=== PATIENT | male | born 1980 | race Caucasian/White ===

== ENCOUNTER 2021-01-12 10:21 | Inpatient (IN) | payer MEDICAID ==
[2021-01-12] VITALS (8 sets, daily range): BP systolic 116–132; BP diastolic 57–74
[~2021-01-12] VITALS: Ht 185.4 cm; Wt 88.4 kg
[2021-01-12] MEDS ORDERED: IV RINGERS SOLUTION,LACTATED 1,000 ML IV ONE ×2 (10:30→11:45)
[2021-01-12] MEDS ORDERED: MORPHINE SULFATE 4 MG/ML DISP.SYRIN. IV ONE (10:30)
[2021-01-12 10:54] LABS: BASO # 0.1 x10^3/uL (0.0-0.2); BASO % 0 % (0-3); EOS # 0.1 x10^3/uL (0.0-0.7); EOS % 0 % (0-3); HEMATOCRIT 54.9 % (39.0-53.0); HEMOGLOBIN 17.8 g/dL (13.0-17.5); LYMPH # 1.9 x10^3/uL (1.0-4.8); LYMPH % 7 % (24-48); MEAN CORPUSCULAR HEMOGLOBIN 33 pg (25-35); MEAN CORPUSCULAR HGB CONC 32 g/dL (31-37); MEAN CORPUSCULAR VOLUME 101 fL (79-100); MONO # 1.5 x10^3/uL (0.0-1.1); MONO % 6 % (0-9); NEUT # 23.9 x10^3uL (1.8-7.7); NEUT % 87 % (31-73); PLATELET COUNT 296 x10^3/uL (140-400); RED BLOOD COUNT 5.45 x10^6/uL (4.30-5.70); RED CELL DISTRIBUTION WIDTH 13.3 % (11.5-14.5); WHITE BLOOD COUNT 27.5 x10^3/uL (4.0-11.0)
--- NOTE | 2021-01-12 10:58 | PHYS DOC ---
Past History Past Medical History: Diabetes Past Surgical History: No Surgical History Alcohol Use: None General Adult EDM: Chief Complaint: NAUSEA/VOMITING/DIARRHEA HPI: HPI: Patient is a 40-year-old male male coming in via EMS for epigastric right upper quadrant abdominal pain. Patient states the pain started 4 hours ago. Patient is diaphoretic and breathing heavily. Has a history of type 1 diabetes. States he has not been in the hospital for his diabetes in a long time. Patient states he has been out of his blood glucose testing strips but has been taking his insulin regularly. Has had some nausea without vomiting. No change in bowel movements. Denies any recent illness or infections. Review of Systems: Review of Systems: All other systems within normal limits except for as noted in the HPI Current Medications: Current Meds: Current Medications Medications (Trade) Dose Ordered Sig/Lovely Start Time Stop Time Status Last Admin Dose Admin Lactated Ringer's 1,000 ml @ 2,000 mls/hr 1X ONCE 01/12/21 10:30 01/12/21 10:59 01/12/21 10:35 2,000 MLS/HR Morphine Sulfate (Morphine 4mg Syringe) 4 mg 1X ONCE 01/12/21 10:30 01/12/21 10:31 DC 01/12/21 10:35 4 MG Allergies: Allergies: Allergies Coded Allergies Type Severity Reaction Last Updated Verified No Known Drug Allergies 01/12/21 No Physical Exam: PE: Constitutional: Well developed, well nourished, no acute distress, non-toxic appearance. [] HENT: Normocephalic, atraumatic, bilateral external ears normal, nose normal. [] Eyes: PERRLA, conjunctiva normal, no discharge. [] Neck: No rigidity, supple, no stridor. [] Cardiovascular: Regular rate and rhythm, brisk cap refill [] Lungs & Thorax: Tachypneic, symmetric chest rise. Kussmaul breathing. Abdomen: Soft, nondistended, right upper quadrant tenderness without guarding. Skin: Warm, dry, no erythema, no rash. Diaphoretic [] Back: Unremarkable Extremities: No deformities, range of motion grossly intact, no lower extremity edema [] Neurologic: Alert and oriented X 3, no focal deficits noted. [] Psychologic: Affect normal, judgement normal, mood normal. [] Current Patient Data: Vital Signs: Vital Signs Date Time Temp Pulse Resp B/P (MAP) Pulse Ox O2 Delivery O2 Flow Rate FiO2 01/12/21 10:49 97.7 117 36 145/81 (102) 99 Room Air EKG: EKG: Sinus tachycardia with a heart rate of 112 bpm, normal axis, large T waves. No ectopy. No ST elevation or depression [] Radiology/Procedures: Radiology/Procedures: XR CHEST 1V History: Reason: dka / Spl. Instructions: / History: Comparison: None. Findings: No consolidation or pleural effusion. Normal heart size. No pneumothorax. Impression: 1. No acute cardiopulmonary process. [] Heart Score: C/O Chest Pain: No Risk Factors: Risk Factors: DM, Current or recent (<one month) smoker, HTN, HLP, family history of CAD, obesity. Risk Scores: Score 0 - 3: 2.5% MACE over next 6 weeks - Discharge Home Score 4 - 6: 20.3% MACE over next 6 weeks - Admit for Clinical Observation Score 7 - 10: 72.7% MACE over next 6 weeks - Early Invasive Strategies Course & Med Decision Making: Course & Med Decision Making Pertinent Labs and Imaging studies reviewed. (See chart for details) DKA protocol initiated and admitted to ICU. [] Dragon Disclaimer: Dragon Disclaimer: This electronic medical record was generated, in whole or in part, using a voice recognition dictation system. Departure Departure: Impression: Primary Impression: DKA, type 1 Disposition: ADMITTED INPATIENT Admitting Physician: Kadeem Ayala Condition: CRITICAL Referrals: NON,STAFF (PCP) JOHN BRUNNER MD Jan 12, 2021 10:58
[2021-01-12 11:12] LABS: ALBUMIN 4.5 g/dL (3.4-5.0); ALBUMIN/GLOBULIN RATIO 0.9 (1.0-1.7); CALCIUM 9.5 mg/dL (8.5-10.1); CREATININE 2.2 mg/dL (0.7-1.3); GFR 33.3; MAGNESIUM 2.3 mg/dL (1.8-2.4); PHOSPHORUS 7.5 mg/dL (2.6-4.7); POTASSIUM 4.7 mmol/L (3.5-5.1); TOTAL BILIRUBIN 0.7 mg/dL (0.2-1.0); TOTAL PROTEIN 9.3 g/dL (6.4-8.2)
[2021-01-12] MEDS ORDERED: ONDANSETRON PF 4 MG/2 ML VIAL. ONE (11:27)
--- NOTE | 2021-01-12 11:36 | EKG ---
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
[2021-01-12] MEDS ORDERED: POTASSIUM CHLORIDE 10MEQ 100 ML IV PRN ×4 (11:45)
[2021-01-12] MEDS ORDERED: MAGNESIUM SULFATE 2GM 50 ML IV PRN (11:45)
[2021-01-12] MEDS ORDERED: IV DEXTROSE 5 %-0.45 % NACL 1,000 ML IV SCH (11:45)
--- NOTE | 2021-01-12 11:48 | RAD ---
XR CHEST 1V History: Reason: dka / Spl. Instructions: / History: Comparison: None. Findings: No consolidation or pleural effusion. Normal heart size. No pneumothorax. Impression: 1. No acute cardiopulmonary process. Electronically signed by: Steven Francis DO (01/12/2021 11:45 AM) [id number]
[2021-01-12 12:06] LABS: % BANDS 5 % (0-9); % LYMPHS 3 % (24-48); % MONOS 3 % (0-10); % SEGS 89 % (35-66); PLT ESTIMATE ADEQUATE (ADEQUATE)
[2021-01-12] MEDS: INSULIN REGULAR VIAL 100 UNIT in IV NORMAL SALINE 100ML 100 ML IV PRN (12:17)
[2021-01-12] MEDS: IV NORMAL SALINE 1,000ML 1,000 ML IV SCH ×2 (12:18→16:50)
[2021-01-12 14:15] LABS: BILIRUBIN,URINE SMALL (NEG); CLARITY,URINE CLEAR; COLOR,URINE YELLOW; GLUCOSE,URINE 500 mg/dL (NEG); NITRITE,URINE NEG (NEG); UROBILINOGEN,URINE 0.2 mg/dL (0.2 mg/dL)
[2021-01-12 14:17] LABS: BACTERIA,URINE 0 /HPF (0-FEW); GRANULAR CASTS,URINE OCC /HPF; WBC,URINE 0 /HPF (0-4)
[2021-01-12 14:20] LABS: BARBITURATES NEG (NEG); BENZODIAZEPINES NEG (NEG); CANNABINOIDS NEG (NEG); COCAINE NEG (NEG); METHADONE NEG (NEG); OPIATES POS (NEG); PHENCYCLIDINE NEG (NEG)
[2021-01-12 14:26] LABS: AMPHETAMINE/METHAMPHETAMINE NEG (NEG)
[2021-01-12] MEDS ORDERED: INSU100C4 SQ (18:44)
[2021-01-12] MEDS ORDERED: INSU100V13 SQ (18:44)
[2021-01-12 19:50] LABS: CALCIUM 7.9 mg/dL (8.5-10.1); CREATININE 1.3 mg/dL (0.7-1.3); GFR 61.1; POTASSIUM 4.3 mmol/L (3.5-5.1)
[2021-01-12] MEDS ORDERED: POTASSIUM CL 20MEQ D5-0.45NACL 1,000 ML IV ONE ×2 (20:05→20:15)
[2021-01-13] VITALS (21 sets, daily range): BP systolic 98–121; BP diastolic 45–71
[2021-01-13] MEDS: INSULIN REGULAR VIAL 100 UNIT in IV NORMAL SALINE 100ML 100 ML IV PRN (00:06)
[2021-01-13] MEDS ORDERED: POTASSIUM CL 20MEQ D5-0.45NACL 1,000 ML IV ONE (02:30)
[2021-01-13 05:41] LABS: CALCIUM 8.2 mg/dL (8.5-10.1); CREATININE 1.1 mg/dL (0.7-1.3); GFR 74.1; POTASSIUM 3.5 mmol/L (3.5-5.1)
[2021-01-13] MEDS ORDERED: POTASSIUM CHLORIDE 20 MEQ TABLET.ER. PO ONE ×2 (07:45→18:00)
[2021-01-13] MEDS ORDERED: DEXTROSE 50% 25 GM / 50ML DISP.SYRIN. IV PRN (08:00)
[2021-01-13] MEDS: INSULIN LISPRO 300 UNITS/3 ML VIAL. SQ SCH ×4 (08:00→21:15)
--- NOTE | 2021-01-13 08:52 | HP ---
ADMIT DATE: 01/12/2021 ATTENDING PHYSICIAN: Dr. Jj. CHIEF COMPLAINT: Nausea and weakness. HISTORY OF PRESENT ILLNESS: The patient is a 40-year-old male, type 1 diabetic, who has been noncompliant with his regimen. Supposedly, he ran out of glucose strips, but in reality, he is very depressed. He drinks alcohol and smokes. He has very little insight. He is unemployed. He appears quite despondent when I saw him, perhaps is not due to feeling well. In any event, he has no insight regarding the importance of taking the insulin. His sugars were over 600. His anion gap was 31. Clearly, he was in diabetic ketoacidosis. He was very weak and pale. He was admitted for further treatment and evaluation. He has no recent COVID exposure. No pulmonary symptoms. He has not been taking insulin regularly. He is kind of hit and miss. He has had some nausea without vomiting. No hematemesis. PAST MEDICAL HISTORY: Significant for the type 1 diabetes. He supposedly sees Dr. Mark, how compliant is questionable. ALLERGIES: HE HAS ALLERGIES TO SULFA DRUGS, EXACT REACTIONS UNCLEAR. CURRENT MEDICATIONS: He was supposed to take scheduled regular and Lantus insulin in the form of Levemir and NovoLog. He has not been compliant. SOCIAL HISTORY: He is a smoker daily. He also drinks alcohol, probably more than he admits to. FAMILY HISTORY: Mom is alive in her mid 60s. Biologic father whereabouts is unknown. He is . He is currently unemployed. REVIEW OF SYSTEMS: Significant for the nausea. No COVID exposure. Some vomiting, but no hematemesis. No diarrhea. All other systems reviewed and turned to be negative. PHYSICAL EXAMINATION: GENERAL: When I saw him, this is a pleasant young male. INITIAL VITAL SIGNS: Showed blood pressure 108/50, pulse is 95 and regular. He was afebrile. Room air saturations are 98%. HEENT: Head is without trauma. Pupils are reactive. Sclerae nonicteric. Oropharynx clear. NECK: Supple, no bruits identified. LUNGS: Clear. CARDIOVASCULAR: Showed regular heart tones. No gallops. ABDOMEN: Soft, no guarding or rebound tenderness. Bowel sounds are hypoactive. EXTREMITIES: Showed no cyanosis or edema. NEUROLOGIC: Focally intact. SKIN: Warm and dry. Affect is flat. PERTINENT LABORATORY STUDIES: On admission, his hemoglobin is 17.8 g/dL in a hemoconcentrated state, white count is 27,500. His blood sugar initially was over 600 with anion gap of 31. IMAGING STUDIES: Chest x-ray on admission was clear without any acute cardiopulmonary process. ASSESSMENT: 1. A 40-year-old gentleman with type 1 diabetes. He has diabetic ketoacidosis. 2. Noncompliance of regimen. 3. Given his indices, I believe he has chronic alcoholism. 4. Chronic obstructive pulmonary disease. 5. Most likely underlying depression. 6. Leukocytosis due to probable early leukemoid reaction. PLAN: 1. Admit to the ICU. 2. Glucose stabilizer protocol with insulin drip. 3. Noncaloric diet. 4. Follow up chemistries in the morning. EVGENY JJ MD DR: BRIAN/gisela JOB#: [id number] / [id number] JENIFER Rivera MD
[2021-01-13 16:54] LABS: CALCIUM 8.5 mg/dL (8.5-10.1); CREATININE 1.1 mg/dL (0.7-1.3); GFR 74.1; POTASSIUM 3.5 mmol/L (3.5-5.1)
[2021-01-13 20:36] LABS: CALCIUM 8.3 mg/dL (8.5-10.1); GFR 82.8
[2021-01-14 05:42] VITALS: BP 114/65
[2021-01-14] MEDS: INSULIN LISPRO 300 UNITS/3 ML VIAL. SQ SCH (08:42)
--- NOTE | 2021-01-14 09:55 | DS ---
DATE OF DISCHARGE: 01/14/2021 ATTENDING PHYSICIAN: Dr. Jj. FINAL DISCHARGE DIAGNOSES: 1. Diabetic ketoacidosis, resolved. 2. Dehydration, rehydrated. 3. Type 1 diabetes mellitus. 4. Chronic alcoholism based on history and indices. 5. Chronic obstructive pulmonary disease, mild. 6. Underlying depression. 7. Leukocytosis on admission. HISTORY OF PRESENT ILLNESS: The patient is a 40-year-old gentleman who had probably an episode of gastroenteritis. He stopped taking his insulin. He presented couple of days later, there is some question about compliance and he was administering diminished doses of insulin. He was in DKA with an anion gap of 31, blood sugar over 580 mg/dL. PHYSICAL EXAMINATION: Please see the dictated note. PERTINENT LABORATORY AND X-RAY STUDIES: Admission hemoglobin was 17.8 grams in a hemoconcentrated state, white count 27,500. This will be followed up as an outpatient. Chemistry panel showed an anion gap of 31, repeated the next day was down to 16 and sugars were initially high, came down to the low 200s and this will be followed up accordingly. Urine screen was negative for alcohol. Chest x-ray on admission showed no acute infiltrates. COURSE IN THE HOSPITAL: The patient was admitted to the ICU, started on glucose stabilizing protocol ____ diet to bring sugars down. Acidosis corrected. He felt better. Diet was advanced. By the third hospital day, vital signs stable. Sugars still a bit high in the low 200s. This will be followed as an outpatient. He has a monitor already in place and he should continue his Levemir and regular doses as prescribed. 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 He will take his 30 units of Levemir at bedtime and again the sliding scale regular insulin before each meal. The patient was then discharged from our hospital in stable condition, improved clinically with stable vital signs. He was given specific instructions and followup care. TOTAL DISCHARGE TIME SPENT: 38 minutes. EVGENY JJ MD DR: BRIAN/gisela JOB#: [id number] / [id number] JENIFER Rivera MD
== END 2021-01-14 09:56 | disposition home or self-care (01) | DRG 637 ==
LOC: ER 10:21 → ICU 13:23
PROVIDERS: ADMIT Hospitalist; ATTEND Hospitalist
DX: E10.10 Type 1 diabetes mellitus with ketoacidosis without coma (principal); N17.0 Acute kidney failure with tubular necrosis; D72.823 Leukemoid reaction; E86.0 Dehydration; F10.20 Alcohol dependence, uncomplicated; F17.200 Nicotine dependence, unspecified, uncomplicated; F32.9 Major depressive disorder, single episode, unspecified; J44.9 Chronic obstructive pulmonary disease, unspecified; I10 Essential (primary) hypertension; K52.9 Noninfective gastroenteritis and colitis, unspecified; E78.5 Hyperlipidemia, unspecified; Z79.4 Long term (current) use of insulin; Z82.49 Family history of ischemic heart disease and other diseases of the circulatory system; Z91.19 Patient's noncompliance with other medical treatment and regimen; Z56.0 Unemployment, unspecified; Z88.2 Allergy status to sulfonamides
CPT/HCPCS: 36415; 71045; 80048; 80053; 80307; 81001; 82803; 82947; 83605; 83690; 83735; 84100; 84443; 84484; 85007; 85025; 87040; 93005; 96361; 96374; 99406; G0480; J1815; J2270; J7120; 99285-25; J7030

== ENCOUNTER → 2022-01-19 | Outpatient (CLI) | payer MEDICAID ==
[~2022-01-19] MED LIST: INSU100C4 SQ; INSU100V13 SQ
--- NOTE | 2022-01-19 12:37 | RAD ---
EXAMINATION: XR CHEST 2V CLINICAL HISTORY: COUGH, SOA, WHEEZING, X 2-3 DAYS. EXAM DATE/TIME: 01/19/2022 12:31 PM COMPARISON: 01/12/2021 FINDINGS: Lines, Tubes, and Devices: None. Cardiomediastinal Silhouette: Within normal limits. Lungs and Pleura: Mild right basilar patchy opacities. No evidence of pleural effusion or pneumothora x. Bones and Soft Tissues: No acute osseous abnormality. IMPRESSION: Mild patchy right basilar airspace disease, possibly subsegmental atelectasis. Electronically signed by: Maxi Valdez DO (01/19/2022 12:35 PM) [facility]
== END ==
LOC: DXRAD 12:16
PROVIDERS: ATTEND Registered Nurse
DX: R91.8 Other nonspecific abnormal finding of lung field (principal); R06.2 Wheezing
CPT/HCPCS: 71046